=== PATIENT | male | born 1970 | race Caucasian/White ===

== ENCOUNTER → 2024-11-10 16:15 | Outpatient (REF) | payer BC, SELFPAY | LOC: MRI 3T 16:15 | PROVIDERS: ATTENDING PHYSICIAN Nurse Practitioner Family; FAMILY PHYSICIAN Internal Medicine | DX: M54.50 Low back pain, unspecified (principal); R20.2 Paresthesia of skin; W19.XXXD Unspecified fall, subsequent encounter; M79.604 Pain in right leg | CPT/HCPCS: 72148 ==